=== PATIENT | female | born 1985 | race Caucasian/White ===

== ENCOUNTER 2017-09-01 14:15 | Outpatient (CLI) | payer MEDICAID ==
[~2017-09-01] VITALS: Ht 154.9 cm; Wt 70.2 kg
[~2017-09-01 14:15] MED LIST: ACET500C5 PO; CALC-649; FERR27TA; PREN1TAB49
[2017-09-01 14:44] VITALS: Ht 154.9 cm; Wt 70.2 kg
[2017-09-01 14:45] VITALS: BP 108/67; PULSE 102
--- NOTE | 2017-09-01 15:47 | RADRPT ---
PROCEDURE: Limited obstetric ultrasound CLINICAL INDICATION: labor TECHNIQUE: Multiple transverse and longitudinal grayscale images of the pelvis were obtained wells sabdominally and endovaginally.. COMPARISON: same day FINDINGS: There is a single live intrauterine gestation in a vertex position with a heart rate of 57 bpm . The cervix is closed and measures 3.8 cm in length. The placenta is anterior and there is a partial placenta previa. There is no placental abruption. RPTAT: AA IMPRESSION: The cervix is closed and measures 3.8 cm in length. Anterior placenta with a partial placenta previa. Physician Lo Date Time Electronically viewed and signed by Frederick Michele Physician on 09/01/2017 15:47 RA/
--- NOTE | 2017-09-01 17:37 | PN ---
Triage Information Date/Time September 01, 2017 Reason for visit: Sent him from clinic with uterine contractions every 15 minutes and vaginal spotting Weeks of Gestation 19 weeks and 5 days /Para 4 para 3 Has history of 3 deliveries Diabetes: none Hypertention: none Additional information Patient had ultrasound in [facility] showing slight funneling of the cervix with a cervical length of 3.3 cm Perinatology consult obtained over the phone in regards to this patient Is going to be evaluated in perinatology clinic in about 3 days Objective Vital Signs Date Time Temp Pulse Resp B/P Pulse Ox O2 Delivery O2 Flow Rate FiO2 09/01/17 14:45 98.4 102 108/67 Heart Rate: 150's Contractions: None Exam Deferred Results/Medications Imaging Results The cervix is closed and measures 3.8 cm in length. Anterior placenta with a partial placenta previa. Disposition: Discharge Assessment/Plan Patient is going to be evaluated by perinatologist on 09/05/2070 YARI RAZO MD Sep 01, 2017 17:37
--- NOTE | 2017-09-01 19:36 | TRIAGE ---
OB Triage Datetime Report Generated by CPN: 09/01/2017 19:36 Datetime: 09/01/2017 17:29 Stage of : OB Triage Datetime: 09/01/2017 17:06 Stage of : OB Triage Datetime: 09/01/2017 16:40 Labor Evaluation Frequency: 0 Monitor Mode: External Resting Tone [place]: Relaxed Comments: OFF DUE TO GESTATIONAL AGE Pain Assessment Pain Scale: 0 Pain Presence: None/Denies Pain Type: N/A Pain Goal: 3 Pain Relief Measures: Comfort Measures Datetime: 09/01/2017 15:41 Labor Evaluation Frequency: 0 Monitor Mode: External Resting Tone [place]: Relaxed Comments: OFF DUE TO GESTATIONAL AGE Pain Assessment Pain Scale: 0 Pain Presence: None/Denies Pain Type: N/A Pain Goal: 3 Pain Relief Measures: Comfort Measures Datetime: 09/01/2017 14:52 Stage of : OB Triage Datetime: 09/01/2017 14:41 Stage of : OB Triage Assessment Type: Triage Maternal Assessment Level of Consciousness: Fully Conscious DTR's/Clonus: DTRs 2+; No Clonus Headache: Denies Blurred Vision: No Respiratory Effort: Unlabored; Regular Rhythm; Equal Expansion Breath Sounds, Left: Clear and Equal Breath Sounds, Right: Clear and Equal Nausea/Vomiting: Denies RUQ Epigastric Pain: Denies Facial Edema: None Temperature Route: Axillary Fall Risk Assessment History of Falling: (0) No Secondary Diagnosis: (0) No Ambulatory Aid: (0) Bedrest/Nurse Assist IV Therapy: (0) No Gait: (0) Normal/Bedrest/Immobile Mental Status: (0) Oriented to Own Ability Fall Score: 0 Fall Risk Score Definition: No Risk: No action required Labor Evaluation Frequency: 0 Monitor Mode: External Resting Tone [place]: Relaxed Heart Rate FHR Baseline Rate: 155 (Annotations: DONE OVER 1 MINUTE THEN REMOVED DUE TO GESTATIONAL AGE) Monitor Mode: External US Pain Assessment Pain Scale: 0 Pain Presence: None/Denies Pain Type: N/A Pain Goal: 3 Pain Relief Measures: Comfort Measures Datetime: 09/01/2017 14:40 EGA: 19.6 Datetime: 09/01/2017 14:39 Time of Arrival: 09/01/2017 14:16 Arrived By: Ambulatory Arrived From: Office Chief Complaint: SENT FROM DR OFFICE TO EVALUATE SHORT CERVIX, DENIES BLEEDING OR LEAKING OF FLUI D Movement: Present Contractions: Denies/Absent Rupture of Membranes: Denies Vaginal Bleeding: None Vaginal Discharge: Denies Recent Sexual Intercouse: Denies Abdominal Trauma: Not Applicable Patient Complaints: None Time Provider Notified: 09/01/2017 14:52 Provider Notified: VALERIE Initial Plan: MONITOR FOR UC'S, CL
== END 2017-09-01 18:00 | disposition home or self-care (01) ==
LOC: L-D 14:15 → OBT 14:15
PROVIDERS: ATTEND Obstetrics & Gynecology
DX: O20.8 Other hemorrhage in early pregnancy (principal); Z3A.19 19 weeks gestation of pregnancy
CPT/HCPCS: 76817; Z7500; G0463

== ENCOUNTER 2017-09-11 21:27 | Outpatient (CLI) | payer MEDICAID ==
[~2017-09-11] VITALS: Ht 154.9 cm; Wt 71.0 kg
[2017-09-11 21:36] VITALS: BP 111/70; PULSE 121; RESP 18; Ht 154.9 cm; Wt 71.0 kg
[2017-09-11 23:20] LABS: BASOPHILS % 0.3 % (0.0-2.0); EOSINOPHILS # 0.1 10^3/ul (0.0-0.5); EOSINOPHILS % 0.9 % (0.0-7.0); HEMATOCRIT 33.7 % (37.0-47.0); LYMPHOCYTES # 1.7 10^3/ul (0.8-2.9); MEAN CORPUSCULAR HEMOGLOBIN 32.5 pg (29.0-33.0); MEAN CORPUSCULAR HGB CONC 35.6 g/dl (32.0-37.0); MEAN CORPUSCULAR VOLUME 91.3 fl (82.0-101.0); MEAN PLATELET VOLUME 10.5 fl (7.4-10.4); MONOCYTE # 0.6 10^3/ul (0.3-0.9); MONOCYTES % 5.6 % (0.0-11.0); NEUTROPHIL # 7.4 10^3/ul (1.6-7.5); NEUTROPHILS % 75.5 % (39.0-77.0); PLATELET COUNT 239 10^3/UL (140-415); RED BLOOD COUNT 3.69 10^6/ul (4.20-5.40); RED CELL DISTRIBUTION WIDTH 12.3 % (11.5-14.5); WHITE BLOOD COUNT 9.8 10^3/ul (4.8-10.8)
[2017-09-11 23:27] LABS: ADD UMIC YES; UR ASCORBIC ACID NEGATIVE (NEGATIVE); UR BACTERIA FEW /HPF (NONE SEEN); UR BILIRUBIN (Dip) NEGATIVE (NEGATIVE); UR BLOOD (Dip) 3+ mg/dL (NEGATIVE); UR CLARITY CLEAR (CLEAR); UR COLOR COLORLESS (YELLOW); UR GLUCOSE (Dip) 1+ mg/dL (NEGATIVE); UR KETONES (Dip) NEGATIVE (NEGATIVE); UR LEUKOCYTE ESTERASE (Dip) NEGATIVE Leu/ul (NEGATIVE); UR NITRITE (Dip) NEGATIVE (NEGATIVE); UR RBC 0 /HPF (0-5); UR SPECIFIC GRAVITY (Dip) 1.002 (1.003-1.030); UR TOTAL PROTEIN (Dip) NEGATIVE (NEGATIVE); UR UROBILINOGEN (Dip) NEGATIVE (NEGATIVE)
--- NOTE | 2017-09-12 00:48 | RADRPT ---
PROCEDURE: Limited OB ultrasound CLINICAL INDICATION: History of placenta previa. Placenta previa. TECHNIQUE: Limited sonographic evaluation of the gravid uterus was performed to assess the placent a COMPARISON: 09/01/2017. FINDINGS: Single live intrauterine with cardiac heart rate of 152 beats per minute is identifi ed. Fetus is in a breech presentation. The placenta is posterior. Cervix measures 3.37 cm in lengt h. There is fluid or debris within the endocervical canal up to 6 mm in width. There is no evidence for placenta previa. IMPRESSION: Single live intrauterine with a cervical length of 3.37 cm. No evidence for placenta previ a. Fluid/hemorrhage within the endocervical canal. RPTAT: HMVK .Chin Campbell MD, Date Time Electronically viewed and signed by .Chin Campbell MD, MD on 09/12/2017 00:47 .K/
--- NOTE | 2017-09-12 01:09 | PN ---
Triage Information Date/Time Reason for visit: Vag spotting / bleeding Weeks of Gestation 21 weeks /Para Diabetes: none Hypertention: none Objective Heart Rate: 140's Heart Rate Comments Appropriate for GA Contractions: None Results/Medications Result Diagram: 09/11/176 Results 24 hrs Laboratory Tests Test 09/11/17 21:40 09/11/17 23:06 Urine Color COLORLESS Urine Clarity CLEAR Urine pH 7.0 Urine Specific [place] 1.002 L Urine Ketones NEGATIVE Urine Nitrite NEGATIVE Urine Bilirubin NEGATIVE Urine Urobilinogen NEGATIVE Urine Leukocyte Esterase NEGATIVE Urine Microscopic RBC 0 Urine Microscopic WBC 0 Urine Bacteria FEW A Urine Hemoglobin 3+ H Urine Glucose 1+ H Urine Total Protein NEGATIVE White Blood Count 9.8 Red Blood Count 3.69 L Hemoglobin 12.0 Hematocrit 33.7 L Mean Corpuscular Volume 91.3 Mean Corpuscular Hemoglobin 32.5 Mean Corpuscular Hemoglobin Concent 35.6 Red Cell Distribution Width 12.3 Platelet Count 239 Mean Platelet Volume 10.5 H Neutrophils % 75.5 Lymphocytes % 17.0 Monocytes % 5.6 Eosinophils % 0.9 Basophils % 0.3 Nucleated Red Blood Cells % 0.0 Neutrophils # 7.4 Lymphocytes # 1.7 Monocytes # 0.6 Eosinophils # 0.1 Basophils # 0.0 Nucleated Red Blood Cells # 0.0 Fibrinogen 492.0 H Imaging Results Placenta normal. Cervical length normal Disposition: Discharge Assessment/Plan No active bleeding. No sign of labor. D/C home Follow up with perinatology on 09/20/2017. MOSES TRIANA MD Sep 12, 2017 01:09
--- NOTE | 2017-09-12 05:39 | TRIAGE ---
OB Triage Datetime Report Generated by CPN: 09/12/2017 05:39 Datetime: 09/12/2017 01:01 Labor Evaluation Frequency: X0 Monitor Mode: External Resting Tone [place]: Relaxed Datetime: 09/12/2017 00:59 Pain Assessment Pain Scale: 0 Pain Presence: None/Denies Pain Type: N/A Pain Goal: 0 Datetime: 09/12/2017 00:30 Labor Evaluation Frequency: X1 Monitor Mode: External Duration (sec)2399: 50 Quality: Mild Resting Tone [place]: Relaxed Contraction Comments: PT DENIES FEELING UC Datetime: 09/12/2017 00:20 Pain Assessment Pain Scale: 0 Pain Presence: None/Denies Pain Type: N/A Pain Assessment Comments: PT DENIES CRAMPING OR PAIN Datetime: 09/12/2017 00:16 Pain Assessment Comments: DENIES PAIN OR CRAMPING Datetime: 09/11/2017 23:30 Labor Evaluation Frequency: x1 Monitor Mode: External Duration (sec)2399: 80 Quality: Mild Resting Tone [place]: Relaxed Contraction Comments: pt denies feeling UC Datetime: 09/11/2017 22:34 Monitor Mode: External Comments: u/s off for gestational age Datetime: 09/11/2017 22:28 Labor Evaluation Frequency: X0 Monitor Mode: External Resting Tone [place]: Relaxed Heart Rate FHR Baseline Rate: 160 Monitor Mode: External US Variability: Moderate 6-25 bpm Accelerations: 10X10 Category: Category I Comments: APPROPRIATE FOR GESTATIONAL AGE Datetime: 09/11/2017 22:12 Comments: LOSS OF CONTACT. PT REQUESTED TO TURN ON HER SIDE Datetime: 09/11/2017 21:52 Assessment Type: Triage Maternal Assessment Level of Consciousness: Fully Conscious DTR's/Clonus: DTRs 2+; No Clonus Headache: Denies Blurred Vision: No Respiratory Effort: Unlabored; Regular Rhythm; Equal Expansion Breath Sounds, Left: Clear and Equal Breath Sounds, Right: Clear and Equal Nausea/Vomiting: Denies RUQ Epigastric Pain: Denies Lower Extremities Edema: None Degree: None Upper Extremities Edema: None Degree: None Facial Edema: None Temperature Route: Oral Fall Risk Assessment History of Falling: (0) No Secondary Diagnosis: (0) No Ambulatory Aid: (0) Bedrest/Nurse Assist IV Therapy: (0) No Gait: (0) Normal/Bedrest/Immobile Mental Status: (0) Oriented to Own Ability Fall Score: 0 Fall Risk Score Definition: No Risk: No action required Comment: PRESENTED TO TRIAGE, C/O OF BLEEDING WHEN VOIDING. PT STATES SHE DOESN'T BLEED A LOT WHEN NOT VOIDING ONLY SPOTTING. PT STATES SHE WAS SEEN IN PERINATOLOGY LAST WEEK AND WAS PREVIOUSLY SEEN IN [place] FOR BLEEDING. PT STATES SHE RECEIVES ARIELLE SHOT MONTHLY FROM THE CLINIC. Pain Assessment Pain Scale: 0 Pain Presence: None/Denies Pain Type: N/A Pain Goal: 0 Datetime: 09/11/2017 21:45 Monitor Mode: Palpation Resting Tone [place]: Relaxed Contraction Comments: PT DENIES FEELING ANY UC'S OR CRAMPING Monitor Mode: External US Datetime: 09/11/2017 21:22 Time of Arrival: 09/11/2017 21:22 EGA: 21.2 Arrived By: Ambulatory Arrived From: Home Chief Complaint: BLEEDING WHEN VOIDING SINCE 09/11/17 AT 2045, PT DENIES PAIN OR CRAMPING. PER PT "A LOT OF BLEEDING" WHEN VOIDING BUT SPOTTING ONLY IF NOT VOIDING Movement: Present Contractions: Denies/Absent Rupture of Membranes: Denies Vaginal Discharge: Denies Recent Sexual Intercouse: Denies Abdominal Trauma: Not Applicable Patient Complaints: Other Time Provider Notified: 09/11/2017 22:41 Provider Notified: DELSHAD Initial Plan: EFM, VITALS, ASSESS BLEEDING Datetime: 09/01/2017 14:41 Fall Score: 0 Fall Risk Score Definition: No Risk: No action required Datetime: 09/01/2017 14:40 EGA: 19.6
== END 2017-09-12 01:40 | disposition home or self-care (01) ==
LOC: OBT 21:27 → L-D 21:28 → OBT 09-12 01:40
PROVIDERS: ATTEND Obstetrics & Gynecology
DX: O26.852 Spotting complicating pregnancy, second trimester (principal); Z3A.21 21 weeks gestation of pregnancy
CPT/HCPCS: 76815; 76817; 81001; 85025; 85384; 86850; 86900; 86901; Z7500; G0463

== ENCOUNTER 2017-09-18 03:27 | Outpatient (CLI) | payer MEDICAID ==
[~2017-09-18] VITALS: Ht 154.9 cm; Wt 70.3 kg
[~2017-09-18 03:27] MED LIST changes: -ACET500C5 PO
[2017-09-18 04:56] VITALS: Ht 154.9 cm; Wt 70.3 kg
[2017-09-18 04:57] VITALS: BP 118/70; PULSE 88; RESP 18
[2017-09-18] MEDS ORDERED: ACETAMINOPHEN 500 MG TAB PO STA (05:08)
[2017-09-18] MEDS ORDERED: LACTATED RINGER'S 1,000 ML IV ONE (06:00)
--- NOTE | 2017-09-18 06:11 | PN ---
Triage Information Date/Time Reason for visit: mid-epigastric pain Weeks of Gestation 22+2 /Para 4/2 Diabetes: none Hypertention: none Additional information Pt c/o 8/10 upper abdominal pain starting after eating chicken, corn and bread with water. Pt reports similar pain during other two pregnancies which have been consistent with gallstone pain. Also was told by PCP she may have an ulcer. Pt reports +FM, denies cramping, VB, LOF, N/V, diarrhea. Hx of gallstones x9yrs. U/S documenting gallstones at [facility] 2013. Hx of PTD x3 (22wks, 36wks, 36wks), receiving weekly Dolly. Hx of C/S x3. Seen 09/11 for VB and at that time TVCL 3.37cm Objective Vital Signs Date Time Temp Pulse Resp B/P Pulse Ox O2 Delivery O2 Flow Rate FiO2 09/18/17 04:57 98.4 88 18 118/70 Room Air Heart Rate Comments Doptones 160 Contractions: None Results/Medications Medications Current Medications Lactated Ringer's (Lr) 1,000 ml @ 1,000 mls/hr Q1H ONCE IV ; Start 09/18/17 at 06:00; Stop 09/18/17 at 06:59 Disposition: Awaiting results Assessment/Plan Given hx of Gallstones and PTL/PTD, will perform the following: -RUQ U/S -LR IVF bolus -CBC -UA -TVCL -Tylenol 1g PO for pain MIGEL RENDON MD Sep 18, 2017 06:11
--- NOTE | 2017-09-18 07:11 | RADRPT ---
PROCEDURE: CERVICAL LENGTH ULTRASOUND CLINICAL INDICATION: Pelvic pain. TECHNIQUE: Trans-vaginal imaging of the cervical canal was performed utilizing whitley-scale imaging. Sagittal and transverse images were obtained. Trans-abdominal images were also obtained. The vicki ges were reviewed on a PACS workstation. COMPARISON: None. FINDINGS: There is a single live intrauterine . heart rate is 171 beats per minute. Position is cephalic and placenta is anterior grade 1. There is no placenta previa. The cervix is closed with a length of 2.9 cm. IMPRESSION: 1. Cervical length is 2.9 cm. RPTAT: QQ .Miguelito Corcoran MD, MD Date Time Electronically viewed and signed by .Miguelito Corcoran MD, on 09/18/2017 07:11 .R/
--- NOTE | 2017-09-18 07:12 | RADRPT ---
PROCEDURE: US Abdomen (right upper quadrant). CLINICAL INDICATION: Right upper quadrant abdomen pain. TECHNIQUE: Multiple real-time longitudinal and transverse images of the right upper quadrant of th e abdomen were acquired utilizing a curved array transducer. Images were reviewed on a high-resoluti on PACS workstation. COMPARISON: None FINDINGS: The liver is normal in size and normal in echogenicity. There is no focal hepatic lesion. Color Doppler and pulsed Doppler sonography demonstrate normal an tegrade flow in the portal vein. Multiple gallstones are present in the gallbladder. There is no gallbladder wall thickening. There is no pericholecystic fluid collection. The bile ducts are normal with the common bile duct measuring 4.5 mm in diameter. The visualized portions of the pancreas are unremarkable with obscuration of the tail of the pancrea s. No free fluid is present. The right kidney measures 9.2 cm. There is normal echogenicity of the right kidney. There is no p erinephric fluid collection. No hydronephrosis, mass, or calculus is seen. IMPRESSION: 1. Gallstones in the gallbladder. No evidence of cholecystitis. 2. Otherwise normal right upper quadrant abdomen ultrasound. RPTAT: QQ .Miguelito Corcoran MD, MD Date Time Electronically viewed and signed by .Miguelito Corcoran MD, on 09/18/2017 07:12 .R/
[2017-09-18 07:28] LABS: BASOPHILS % 0.2 % (0.0-2.0); EOSINOPHILS # 0.1 10^3/ul (0.0-0.5); EOSINOPHILS % 0.7 % (0.0-7.0); HEMATOCRIT 32.7 % (37.0-47.0); HEMOGLOBIN 11.6 g/dl (12.0-16.0); LYMPHOCYTES # 1.7 10^3/ul (0.8-2.9); LYMPHOCYTES % 12.4 % (15.0-51.0); MEAN CORPUSCULAR HEMOGLOBIN 32.9 pg (29.0-33.0); MEAN CORPUSCULAR HGB CONC 35.5 g/dl (32.0-37.0); MEAN CORPUSCULAR VOLUME 92.6 fl (82.0-101.0); MEAN PLATELET VOLUME 10.3 fl (7.4-10.4); MONOCYTE # 0.6 10^3/ul (0.3-0.9); MONOCYTES % 4.5 % (0.0-11.0); NEUTROPHIL # 11.3 10^3/ul (1.6-7.5); NEUTROPHILS % 81.8 % (39.0-77.0); PLATELET COUNT 205 10^3/UL (140-415); RED BLOOD COUNT 3.53 10^6/ul (4.20-5.40); RED CELL DISTRIBUTION WIDTH 12.5 % (11.5-14.5); WHITE BLOOD COUNT 13.9 10^3/ul (4.8-10.8)
[2017-09-18 07:37] LABS: ADD UMIC YES; UR ASCORBIC ACID NEGATIVE (NEGATIVE); UR BACTERIA FEW /HPF (NONE SEEN); UR BILIRUBIN (Dip) NEGATIVE (NEGATIVE); UR BLOOD (Dip) 1+ mg/dL (NEGATIVE); UR CLARITY CLEAR (CLEAR); UR COLOR YELLOW (YELLOW); UR GLUCOSE (Dip) NEGATIVE (NEGATIVE); UR KETONES (Dip) NEGATIVE (NEGATIVE); UR LEUKOCYTE ESTERASE (Dip) NEGATIVE Leu/ul (NEGATIVE); UR MUCUS FEW /HPF (NONE SEEN); UR NITRITE (Dip) NEGATIVE (NEGATIVE); UR RBC 0 /HPF (0-5); UR SPECIFIC GRAVITY (Dip) 1.016 (1.003-1.030); UR SQUAMOUS EPITHELIAL CELL FEW /HPF (FEW); UR TOTAL PROTEIN (Dip) NEGATIVE (NEGATIVE); UR UROBILINOGEN (Dip) NEGATIVE (NEGATIVE)
== END 2017-09-18 09:00 | disposition home or self-care (01) ==
LOC: OBT 03:27 → L-D 03:27 → OBT 09:00
PROVIDERS: ATTEND Obstetrics & Gynecology
DX: O26.892 Other specified pregnancy related conditions, second trimester (principal); Z3A.22 22 weeks gestation of pregnancy; R10.10 Upper abdominal pain, unspecified
CPT/HCPCS: 36415; 76705; 76817; 81001; 85025; 96360; 96361; J7120; Z7500; Z7610; G0463

== ENCOUNTER 2017-09-22 17:01 | Outpatient (CLI) | payer MEDICAID ==
[~2017-09-22] VITALS: Ht 154.9 cm; Wt 69.7 kg
[2017-09-22 17:16] VITALS: BP 110/69; PULSE 95; RESP 18; Ht 154.9 cm; Wt 69.7 kg
[2017-09-22] MEDS ORDERED: HYDR250V5 IM (17:29)
--- NOTE | 2017-09-22 17:48 | RADRPT ---
PROCEDURE: Limited obstetric ultrasound CLINICAL INDICATION: Pain TECHNIQUE: Multiple transverse and longitudinal grayscale images of the pelvis were obtained wells sabdominally and transvaginally.. COMPARISON: 09/18/17 FINDINGS: The cervix has a length of 3.9 cm. There is complex fluid collection in the cervix suspicious for h emorrhage. There is a single viable intrauterine gestation. Cardiac activity is present with 148 beats per min nallely. There is a breech presentation. The placenta is anterior. There is no evidence for an abruption or placenta previa. RPTAT: AA IMPRESSION: Cervix length measures 3.9 cm. Complex fluid collection in the cervix suspicious for hemorrhage. .Ellis Barlow MD, MD Date Time Electronically viewed and signed by .Ellis Barlow MD, on 09/22/2017 17:48 .S/
--- NOTE | 2017-09-22 18:30 | PN ---
Triage Information Date/Time September 22, 2017 Reason for visit: Vag spotting / bleeding Weeks of Gestation 22 weeks /Para 4 para 3 TPA L is 3012 Diabetes: none Hypertention: none Additional information 31-year-old female with history of previous 3 at 22 weeks complaining of caffeine type discharge for 1 day She has history of deliveries 22 weeks Objective Vital Signs Date Time Temp Pulse Resp B/P Pulse Ox O2 Delivery O2 Flow Rate FiO2 09/22/17 17:16 98.6 95 18 110/69 Heart Rate: 150's Contractions: None Exam Deferred Cervical length was done Results/Medications Imaging Results Cervix length measures 3.9 cm. Complex fluid collection in the cervix suspicious for hemorrhage Disposition: Discharge Assessment/Plan Patient with history of 3 premature C-sections Last was done at 22 weeks most probably with classical uterine scar Patient is on [place] on total bedrest We will continue care Consider transferring care to the higher level of care YARI RAZO MD Sep 22, 2017 18:30
--- NOTE | 2017-09-22 19:57 | TRIAGE ---
OB Triage Datetime Report Generated by CPN: 09/22/2017 19:56 Datetime: 09/22/2017 18:30 Labor Evaluation Frequency: none Monitor Mode: External Resting Tone [place]: Relaxed Heart Rate FHR Baseline Rate: 150 Monitor Mode: External US FHR Baseline Changes: No Baseline Change Variability: Moderate 6-25 bpm Accelerations: 10X10 Decelerations: Variable Comments: appropriate for GA Datetime: 09/22/2017 17:30 Assessment Type: Triage Maternal Assessment Level of Consciousness: Fully Conscious DTR's/Clonus: DTRs 2+; No Clonus Headache: Denies Blurred Vision: No Respiratory Effort: Unlabored; Regular Rhythm; Equal Expansion Breath Sounds, Left: Clear and Equal Breath Sounds, Right: Clear and Equal Nausea/Vomiting: Denies RUQ Epigastric Pain: Denies Lower Extremities Edema: None Degree: None Upper Extremities Edema: None Degree: None Facial Edema: None Temperature Route: Oral Fall Risk Assessment History of Falling: (0) No Secondary Diagnosis: (0) No Ambulatory Aid: (0) Bedrest/Nurse Assist IV Therapy: (0) No Gait: (0) Normal/Bedrest/Immobile Mental Status: (0) Oriented to Own Ability Fall Score: 0 Fall Risk Score Definition: No Risk: No action required Labor Evaluation Frequency: none Monitor Mode: External Heart Rate FHR Baseline Rate: 155 Monitor Mode: External US FHR Baseline Changes: No Baseline Change Variability: Moderate 6-25 bpm Accelerations: 10X10 Decelerations: Variable Comments: appropriate for GA Pain Assessment Pain Scale: 0 Pain Presence: None/Denies Pain Type: N/A Datetime: 09/18/2017 09:10 Time of Arrival: 09/22/2017 16:58 EGA: 22.6 Arrived By: Ambulatory Arrived From: Home Chief Complaint: pt had an appointment in am in the clinic, pt c/o brown vaginal discharge, had a history of labor, was send to triage. Movement: Present Contractions: Denies/Absent Rupture of Membranes: Denies Vaginal Bleeding: None Vaginal Discharge: Denies Recent Sexual Intercouse: Denies Abdominal Trauma: Not Applicable Time Provider Notified: 09/22/2017 18:10 Provider Notified: Dr Villa Initial Plan: US for cervical length Datetime: 09/18/2017 08:43 Heart Rate FHR Baseline Rate: 160 Monitor Mode: External US Comments: FHT X 1 MIN Datetime: 09/18/2017 08:30 Stage of : OB Triage Datetime: 09/18/2017 07:32 Labor Evaluation Frequency: 0 Monitor Mode: External Resting Tone [place]: Relaxed Comments: OFF DUE TO GESTATIONAL AGE Pain Assessment Pain Scale: 6 Pain Presence: Constant Pain Type: Burning Pain Goal: 3 Pain Relief Measures: Comfort Measures Pain Assessment Comments: STATES TYLENOL HELPED SOME Datetime: 09/18/2017 06:33 Stage of : OB Triage Datetime: 09/18/2017 06:30 Stage of : OB Triage Datetime: 09/18/2017 06:25 Stage of : OB Triage Labor Evaluation Frequency: NONE Monitor Mode: External Datetime: 09/18/2017 06:00 Stage of : OB Triage Datetime: 09/18/2017 05:56 Stage of : OB Triage Datetime: 09/18/2017 05:40 Stage of : OB Triage Datetime: 09/18/2017 05:38 Stage of : OB Triage Datetime: 09/18/2017 05:20 Stage of : OB Triage Labor Evaluation Frequency: NONE Monitor Mode: External Resting Tone [place]: Relaxed Heart Rate FHR Baseline Rate: 155 Monitor Mode: External US Variability: Moderate 6-25 bpm Accelerations: 15X15 Decelerations: Variable Category: Category II Datetime: 09/18/2017 04:35 Time of Arrival: 09/18/2017 03:15 EGA: 22.2 Arrived By: Wheelchair Arrived From: Home Chief Complaint: PT C/O MIDEPIGASTRIC PAIN Movement: Present Contractions: Denies/Absent Rupture of Membranes: Denies Vaginal Bleeding: None Vaginal Discharge: Denies Recent Sexual Intercouse: Denies Abdominal Trauma: Not Applicable Patient Complaints: Other Time Provider Notified: 09/18/2017 05:38 Provider Notified: DR RENDON Initial Plan: TOCO AND EFM APPLY. NOTIFY MD, CBC, U/A, CL, RUQ U/S, IV HYDRATION Datetime: 09/18/2017 04:13 Stage of : OB Triage Maternal Assessment Level of Consciousness: Fully Conscious DTR's/Clonus: DTRs 2+; No Clonus Headache: Denies Blurred Vision: No Respiratory Effort: Unlabored; Regular Rhythm; Equal Expansion Breath Sounds, Left: Clear and Equal Breath Sounds, Right: Clear and Equal Nausea/Vomiting: Denies RUQ Epigastric Pain: Denies Lower Extremities Edema: None Upper Extremities Edema: None Facial Edema: None Temperature Route: Oral Fall Risk Assessment History of Falling: (0) No Secondary Diagnosis: (0) No Ambulatory Aid: (0) Bedrest/Nurse Assist IV Therapy: (0) No Gait: (0) Normal/Bedrest/Immobile Mental Status: (0) Oriented to Own Ability Fall Score: 0 Fall Risk Score Definition: No Risk: No action required Labor Evaluation Frequency: NONE Monitor Mode: External Heart Rate FHR Baseline Rate: 160 Variability: Minimal - Undetectable to <=5 bpm Accelerations: 15X15 Decelerations: Variable Category: Category II Datetime: 09/11/2017 21:52 Fall Score: 0 Fall Risk Score Definition: No Risk: No action required Datetime: 09/11/2017 21:22 EGA: 21.2 Datetime: 09/01/2017 14:41 Fall Score: 0 Fall Risk Score Definition: No Risk: No action required Datetime: 09/01/2017 14:40 EGA: 19.6
== END 2017-09-22 19:50 | disposition home or self-care (01) ==
LOC: OBT 17:01 → L-D 17:02 → OBT 19:50
PROVIDERS: ATTEND Obstetrics & Gynecology
DX: O46.8X2 Other antepartum hemorrhage, second trimester (principal); O34.219 Maternal care for unspecified type scar from previous cesarean delivery; Z3A.22 22 weeks gestation of pregnancy
CPT/HCPCS: 76817; Z7500; G0463

== ENCOUNTER 2017-12-16 00:20 | Inpatient (IN) | END 2017-12-17 09:35 | disposition home or self-care (01) | DRG 778 ==

== ENCOUNTER 2017-12-22 18:41 | Outpatient (CLI) | END 2017-12-22 21:34 | disposition home or self-care (01) ==

== ENCOUNTER 2017-12-28 11:29 | Outpatient (CLI) | END 2017-12-28 13:05 | disposition home or self-care (01) ==

== ENCOUNTER 2018-01-02 03:28 | Inpatient (IN) | END 2018-01-05 13:55 | disposition home or self-care (01) | DRG 766 ==

== ENCOUNTER 2018-01-17 18:16 | Inpatient (IN) | END 2018-01-18 14:24 | disposition home or self-care (01) | DRG 769 ==

== ENCOUNTER 2018-03-04 19:53 | Emergency (ER) | END 2018-03-05 00:22 | disposition home or self-care (01) ==